=== PATIENT | female | born 1970 | race American Indian/Alaskan Native ===

== ENCOUNTER 2016-09-15 05:58 | Emergency (ER) | payer OTHER ==
--- NOTE | 2016-09-15 08:20 | XRay Report ---
RIGHT SHOULDER RADIOGRAPHS INDICATION: Pain. COMPARISON: None similar at this institution. FINDINGS: Frontal and Y views of the right shoulder, 3 projections demonstrate normal humeral head contour, well positioned against the glenoid. Normal acromioclavicular joint. Preserved scapular contour. Normal visualized soft tissues, right ribs and lung. Some extrinsic clothing artifacts. CONCLUSION: No acute right shoulder radiographic abnormality, as described. Thank you for the opportunity to participate in this patient's care.
[2016-09-15 12:35] VITALS: BP 140/90
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
== END 2016-09-15 12:42 | disposition home or self-care (01) ==
LOC: ED 05:58
DX: M25.511 Pain in right shoulder (principal); F17.200 Nicotine dependence, unspecified, uncomplicated; V89.2XXA Person injured in unspecified motor-vehicle accident, traffic, initial encounter; Y93.89 Activity, other specified; Y92.89 Other specified places as the place of occurrence of the external cause; Y99.9 Unspecified external cause status